=== PATIENT | female | born 1970 | race Caucasian/White ===

== ENCOUNTER → 2017-07-06 | Outpatient (CLI) | payer OTHER ==
[~2017-07-06] MED LIST: ASPI81TA28 PO; ATOR-24 PO; DILT120C PO; LEVO88TA3 PO; NTRGSL/4 UT
[2017-07-06 12:12] LABS: HEMATOCRIT 42.2 % (37-47); MEAN CELL VOLUME 87.4 fL (80-100); MEAN CORPUSCULAR HGB CONC 33.2 g/dl (32-36); MEAN PLATELET VOLUME 9.9 fL (7.4-10.4); PLATELET COUNT 352 K/uL (130-400); RED BLOOD COUNT 4.83 M/uL (4.2-5.4); WHITE BLOOD COUNT 6.46 K/uL (4.8-10.8)
[2017-07-06 13:52] LABS: CHOLESTEROL/HDL RATIO 3.8
== END | disposition home or self-care (01) ==
LOC: C.LAB1850 11:20
PROVIDERS: ATTEND Internal Medicine Cardiovascular Disease
DX: Z00.00 Encounter for general adult medical examination without abnormal findings (principal); I20.1 Angina pectoris with documented spasm; I31.3 Pericardial effusion (noninflammatory)

== ENCOUNTER → 2017-07-18 | Outpatient (CLI) | payer OTHER ==
[2017-07-18 13:49] LABS: THYROID STIMULATING HORMONE 0.165 uIu/ml (0.300-4.500)
== END | disposition home or self-care (01) ==
LOC: C.LAB1850 09:55
PROVIDERS: ATTEND Nurse Practitioner Family
DX: E03.9 Hypothyroidism, unspecified (principal)

== ENCOUNTER → 2017-11-19 | Outpatient (CLI) | payer OTHER | END | disposition home or self-care (01) | LOC: C.LAB1850 16:28 | PROVIDERS: ATTEND Family Medicine | DX: E03.9 Hypothyroidism, unspecified (principal) ==

== ENCOUNTER → 2018-01-23 | Outpatient (CLI) | payer OTHER ==
[~2018-01-23] MED LIST changes: +DILT-213 PO; -DILT120C PO
[2018-01-23 10:09] LABS: HEMATOCRIT 41.5 % (37-47); HEMOGLOBIN 13.8 g/dL (12.0-16.0); MEAN CELL VOLUME 89.2 fL (80-100); MEAN CORPUSCULAR HEMOGLOBIN 29.7 pg (25-34); MEAN CORPUSCULAR HGB CONC 33.3 g/dl (32-36); MEAN PLATELET VOLUME 9.8 fL (7.4-10.4); PLATELET COUNT 325 K/uL (130-400); RED CELL DISTRIBUTION WIDTH CV 13.8 % (11.5-14.5); RED CELL DISTRIBUTION WIDTH SD 44.7 fL (36.4-46.3); WHITE BLOOD COUNT 6.02 K/uL (4.8-10.8)
[2018-01-23 10:35] LABS: ALT/SGPT 24 U/L (12-78); AST/SGOT 20 U/L (15-37); BLOOD UREA NITROGEN 15 mg/dl (7-18); CALCIUM 9.2 mg/dl (8.5-10.1); CARBON DIOXIDE 28 mmol/L (21-32); CREATININE 0.83 mg/dl (0.60-1.20); GLUCOSE 77 mg/dl (70-99); POTASSIUM 3.8 mmol/L (3.5-5.1); SODIUM 140 mmol/L (136-145)
[2018-01-23 10:38] LABS: CHOLESTEROL 139 mg/dl (0-200); LDL CHOLESTEROL CALCULATED 76 mg/dl
== END | disposition home or self-care (01) ==
LOC: C.LAB1850 09:16
PROVIDERS: ATTEND Internal Medicine Cardiovascular Disease
DX: I20.1 Angina pectoris with documented spasm (principal); I31.3 Pericardial effusion (noninflammatory); E78.5 Hyperlipidemia, unspecified

== ENCOUNTER 2018-02-14 16:58 | Emergency (ER) | payer OTHER ==
[~2018-02-14] VITALS: Ht 165.1 cm; Wt 66.7 kg
[2018-02-14 17:01] VITALS: BP 136/87; TEMP 36.8; Ht 165.1 cm; Wt 66.7 kg
[2018-02-14] MEDS ORDERED: LEVOPOW36 PO (17:26)
--- NOTE | 2018-02-14 17:30 | EMERGENCY ROOM VISIT NOTE ---
ED Visit Note First contact with patient: 17:05 CHIEF COMPLAINT: Foot pain HISTORY OF PRESENT ILLNESS: This 47-year-old female patient presents to the emergency department by private vehicle complaining of swelling and pain in the right foot at rest and worse with weight bearing. The patient states that she dropped a heavy piece of furniture on the foot approximately 1 week ago. She states that she went to an urgent care and had an x-ray done, but she does not know what the x-ray showed. She states pain has been getting worse, and she has had bruising and swelling to the foot. The patient rates the pain as aching and throbbing and 8/10. The patient has not taken any medications for the pain, and has not tried ice or heat. The patient is able to walk, but states this increases the pain. No numbness or weakness. No ankle pain. There are no lacerations of the foot. The patient is able to move all of their toes and their ankle without pain. No previous fracture to this foot. REVIEW OF SYSTEMS: GENERAL: A 6 system review of systems was completed with positives and pertinent negatives in the HPI. ALLERGIES: Reviewed in chart, see below MEDICATIONS: Reviewed in chart, see below PMH: Reviewed in chart, see problem list below. SOCIAL HISTORY: Lives at home. She is a former smoker. PHYSICAL EXAM: Vital Signs: Reviewed Nurse's notes, vital signs stable. GENERAL : Pleasant and cooperative, in no acute distress, but appears in pain, well- developed, well-nourished. MUSCULOSKELETAL: There is no visual deformity of the right foot. There is no erythema. There is mild swelling and old appearing ecchymosis. There is no warmth. There is tenderness and swelling over the entire dorsal aspect of the right foot. There is no tenderness at the proximal fifth metatarsal. There is no tenderness over the lateral or medial malleolus. No tenderness of the tib/fib. The range of motion of the foot is somewhat limited secondary to pain. There is no tenderness over the plantar fascia. The skin is intact and there are no lacerations or puncture wounds. Dorsalis pedis pulse 2+. Capillary refill less than 2 seconds. Sensation intact to light touch. IMAGING: RIGHT FOOT 3 VIEWS CLINICAL HISTORY: Crushing injury. FINDINGS: 3 views of the right foot are obtained. No prior studies are available for comparison at the time of dictation. The skeletal structures are well mineralized. No fracture is seen. The joint spaces of the foot are maintained. Dorsal soft tissue swelling is noted. IMPRESSION: Mild dorsal soft tissue swelling with no radiographic evidence of right foot fracture. EMERGENCY DEPARTMENT COURSE: I examined the patient. An X-ray of the right foot was reviewed by myself and read by radiologist and reveals soft tissue swelling with no evidence for fracture. The patient was placed in a postop shoe and instructed on the use of crutches. The patient was provided with referral information for the orthopedic surgeon, and encouraged to follow-up with them of her foot pain persists. The patient was discharged home in good condition. Problem List Medical Problems: (1) GERD (gastroesophageal reflux disease) Status: Chronic (2) Hypothyroid Status: Chronic (3) Non-ST elevation MS (NSTEMI) Status: Resolved Current/Historical Medications Scheduled Aspirin (Aspirin Ec), 81 MG PO DAILY Atorvastatin (Lipitor), 40 MG PO DAILY Diltiazem Hcl Coated Beads (Diltiazem Hcl Er), 1 CAP PO DAILY Levothyroxine Sodium (Bulk) (Levothyroxine Sodium), 75 MCG PO DAILY Scheduled PRN Nitroglycerin (Nitrostat), 0.4 MG UT UD PRN for Chest Pain Allergies Coded Allergies: Penicillins (Verified Allergy, Unknown, hives, 02/14/18) Vital Signs Date Time Temp Pulse Resp B/P (MAP) Pulse Ox O2 Delivery O2 Flow Rate FiO2 02/14/18 18:29 92 18 97 Room Air 02/14/18 17:01 36.8 103 18 136/87 97 Room Air Departure Information Impression Primary Impression: Contusion of right foot including toes Dispostion Home / Self-Care Condition GOOD Referrals Cheyenne Avina MD (PCP) Kit Carbone, DO Patient Instructions ED Contusion Foot, [facility] Additional Instructions You have been treated in the Emergency Department for your right foot pain. X- ray today is negative for any fracture. For pain control, you can use the following [id number] medicines (if >12 yo): - Regular strength (325mg/tab) Tylenol (acetaminophen) 2 tabs every 4-6 hours as needed. Do not exceed 10 tablets in a 24 hour period. Avoid taking more than 3000 mg of Tylenol per day. This includes any other sources of acetaminophen you may take on a regular basis. - Regular strength (200 mg/tab) Advil (ibuprofen) 3 tabs every 6-8 hours as needed. Do not exceed a dose of 2400 mg per day. You may alternate ice and heat to the foot intermittently throughout the day to help reduce pain and swelling. Avoid weight bearing on the foot and use crutches and post-op shoe until the pain subsides and you can walk without a limp. Follow up with your family doctor or orthopedic surgeon if symptoms persist in 3 -4 days. Work Instructions Return To Work: 2 days Problem Qualifiers Primary Impression: Contusion of right foot including toes Encounter type: initial encounter Qualified Codes: S90.31XA - Contusion of right foot, initial encounter; S90.121A - Contusion of right lesser toe(s) without damage to nail, initial encounter
--- NOTE | 2018-02-14 17:40 | DIAGNOSTIC IMAGING REPORT ---
RIGHT FOOT 3 VIEWS CLINICAL HISTORY: Crushing injury. FINDINGS: 3 views of the right foot are obtained. No prior studies are available for comparison at the time of dictation. The skeletal structures are well mineralized. No fracture is seen. The joint spaces of the foot are maintained. Dorsal soft tissue swelling is noted. IMPRESSION: Mild dorsal soft tissue swelling with no radiographic evidence of right foot fracture. Electronically signed by: Bulmaro Adkins M.D. 02/14/2018 5:39 PM Dictated Date/Time: 02/14/2018 5:37 PM
[2018-02-14 18:29] VITALS: PULSE 92; O2SAT 97
== END 2018-02-14 18:30 | disposition home or self-care (01) ==
LOC: C.EDB 16:59 → C.EDD 18:30
DX: S90.31XD Contusion of right foot, subsequent encounter (principal); S90.121D Contusion of right lesser toe(s) without damage to nail, subsequent encounter; W20.8XXD Other cause of strike by thrown, projected or falling object, subsequent encounter; Z87.891 Personal history of nicotine dependence; K21.9 Gastro-esophageal reflux disease without esophagitis; E03.9 Hypothyroidism, unspecified; I25.2 Old myocardial infarction; Z79.82 Long term (current) use of aspirin; Z79.899 Other long term (current) drug therapy; Z88.0 Allergy status to penicillin